=== PATIENT | female | born 1960 | race Caucasian/White ===

== ENCOUNTER 2017-11-04 11:45 | Outpatient (CLI) | payer OTHER | END 2017-11-04 11:46 | disposition home or self-care (01) | LOC: BICMAMMO 11:45 | PROVIDERS: ATTEND Internal Medicine | DX: Z12.31 Encounter for screening mammogram for malignant neoplasm of breast (principal); N64.89 Other specified disorders of breast | CPT/HCPCS: 77063; 77067 ==

== ENCOUNTER 2017-11-12 09:50 | Outpatient (CLI) | payer OTHER | END 2017-11-12 09:51 | disposition home or self-care (01) | LOC: BICMAMMO 09:50 | PROVIDERS: ATTEND Internal Medicine | DX: Z12.31 Encounter for screening mammogram for malignant neoplasm of breast (principal) | CPT/HCPCS: G0279 ==

== ENCOUNTER 2018-07-11 07:47 | Outpatient (CLI) | payer OTHER ==
--- NOTE | 2018-07-11 10:06 | BD ---
BONE DENSITOMETRY USING DEXA: HISTORY: Postmenopausal screening for osteoporosis. FINDINGS: Lumbar Spine: BMD (g/cm2) L1 0.828 T-Score: -1.5 Z-Score: -0.2 L2 0.923 T-Score: -1.0 Z-Score: 0.4 L3 0.866 T-Score: -2.0 Z-Score: -0.5 L4 0.859 T-Score: -1.8 Z-Score: -0.3 L1-L4 0.868 T-Score: -1.6 Z-Score: -0.2 Femoral Neck: 0.650 T-Score: -1.8 Z-Score: -0.5 Total Femur: 0.779 T-Score: -1.3 Z-Score: -0.4 The 10-year fracture risk for a major osteoporotic fracture is 7.5% and for a hip fracture is 0.8%. Impression: Osteopenia. POS: [facility]
== END 2018-07-11 07:48 | disposition home or self-care (01) ==
LOC: BICMAMMO 07:47
PROVIDERS: ATTEND Internal Medicine
DX: M81.0 Age-related osteoporosis without current pathological fracture (principal); M85.89 Other specified disorders of bone density and structure, multiple sites
CPT/HCPCS: 77080

== ENCOUNTER 2018-11-17 14:32 | Outpatient (CLI) | payer OTHER ==
--- NOTE | 2018-11-17 15:58 | MMO ---
Bilateral MAMMO Bilat Screen [facility]. CLINICAL HISTORY: Patient is 58 years old and is seen for screening. The patient has no family history of breast cancer. The patient has no personal history of cancer. VIEWS: The views performed were: bilateral craniocaudal with tomosynthesis; bilateral mediolateral oblique with tomosynthesis; and right mediolateral oblique. FILMS COMPARED: The present examination has been compared to prior imaging studies performed at [facility] on 07/26/2014, 08/01/2015, 08/28/2016, 11/04/2017 and 11/12/2017. MAMMOGRAM FINDINGS: There are scattered fibroglandular densities. Finding 1: There are stable benign appearing calcifications seen in both breasts. Finding 2: There are several stable focal asymmetries seen in both breasts. There are no suspicious masses, suspicious calcifications, or new areas of architectural distortion. IMPRESSION: THERE IS NO MAMMOGRAPHIC EVIDENCE OF MALIGNANCY. A ROUTINE FOLLOW-UP MAMMOGRAM IN 1 YEAR IS RECOMMENDED. THE RESULTS OF THIS EXAM WERE SENT TO THE PATIENT. ACR BI-RADS Category 2 - Benign finding MAMMOGRAPHY NOTE: 1. A negative mammogram report should not delay a biopsy if a dominant of clinically suspicious mass is present. 2. Approximately 10% to 15% of breast cancers are not detected by mammography. 3. Adenosis and dense breasts may obscure an underlying neoplasm.
== END 2018-11-17 14:33 | disposition home or self-care (01) ==
LOC: BICMAMMO 14:32
PROVIDERS: ATTEND Internal Medicine
DX: Z12.31 Encounter for screening mammogram for malignant neoplasm of breast (principal)
CPT/HCPCS: 77063; 77067

== ENCOUNTER 2021-06-07 10:35 | Outpatient (CLI) | payer BC | END 2021-06-07 10:36 | disposition home or self-care (01) | LOC: BICMAMMO 10:35 | PROVIDERS: ATTEND Internal Medicine Rheumatology | DX: M81.0 Age-related osteoporosis without current pathological fracture (principal); M85.89 Other specified disorders of bone density and structure, multiple sites | CPT/HCPCS: 77080 ==

== ENCOUNTER 2021-06-23 12:55 | Outpatient (CLI) | payer BC | END 2021-06-23 12:56 | disposition home or self-care (01) | LOC: BICMAMMO 12:55 | PROVIDERS: ATTEND Obstetrics & Gynecology | DX: Z12.31 Encounter for screening mammogram for malignant neoplasm of breast (principal) | CPT/HCPCS: 77063; 77067 ==

== ENCOUNTER 2022-06-26 10:47 | Outpatient (CLI) | payer BC | END 2022-06-26 10:48 | disposition home or self-care (01) | LOC: BICMAMMO 10:47 | PROVIDERS: ATTEND Obstetrics & Gynecology | DX: Z12.31 Encounter for screening mammogram for malignant neoplasm of breast (principal) | CPT/HCPCS: 77063; 77067 ==

== ENCOUNTER 2022-12-20 08:40 | Outpatient (CLI) | payer BC | END 2022-12-20 08:41 | disposition home or self-care (01) | LOC: BICMAMMO 08:40 | PROVIDERS: ATTEND Internal Medicine Rheumatology | DX: M81.0 Age-related osteoporosis without current pathological fracture (principal); M85.89 Other specified disorders of bone density and structure, multiple sites | CPT/HCPCS: 77080 ==

== ENCOUNTER 2023-03-17 06:30 | Emergency (ER) | payer BC ==
[2023-03-17] MEDS ORDERED: Ketorolac Tromethamine 30 MG/ML VIAL ONE (06:57)
[2023-03-17] MEDS ORDERED: diphenhydrAMINE 50 MG/ML VIAL ONE (06:57)
[2023-03-17] MEDS ORDERED: Magnesium 2 GM/50 ML BAG (IN WATER) ONE (06:57)
[2023-03-17] MEDS ORDERED: Prochlorperazine Edisylate 10 MG in Sodium Chloride 0.9% 50 ML IVPB SCH (07:30)
== END 2023-03-17 08:35 | disposition home or self-care (01) ==
LOC: ERS 06:30
DX: R51.9 Headache, unspecified (principal)
CPT/HCPCS: 70450; 96365; 96375; J0780; J1200; J1885; J3475

== ENCOUNTER 2023-09-06 14:02 | Outpatient (CLI) | payer MEDICARE | END 2023-09-06 14:03 | disposition home or self-care (01) | LOC: BICMAMMO 14:02 | PROVIDERS: ATTEND Internal Medicine | DX: Z12.31 Encounter for screening mammogram for malignant neoplasm of breast (principal) | CPT/HCPCS: 77063; 77067 ==